=== PATIENT | female | born 1950 | race Caucasian/White ===

== ENCOUNTER 2020-06-28 14:38 | Emergency (ER) | payer MEDICARE ==
[~2020-06-28] VITALS: Ht 154.9 cm; Wt 79.5 kg
[~2020-06-28 14:38] MED LIST: HYDR-4353 PO
[2020-06-28] MEDS ORDERED: LIDOcaine 5% patch TP STA (16:40)
[2020-06-28] MEDS ORDERED: BUPIVAcaine/PF 7.5mg/ml (0.75%) 10ml vial IJ ONE (16:40)
[2020-06-28] MEDS ORDERED: NAPR-1166 PO (17:46)
[2020-06-28] MEDS ORDERED: LIDO700A32 TOP (17:46)
[2020-06-28 18:07] VITALS: BP 154/81
== END 2020-06-28 18:05 | disposition home or self-care (01) ==
LOC: ER 14:38
DX: S33.5XXA Sprain of ligaments of lumbar spine, initial encounter (principal); M54.16 Radiculopathy, lumbar region; M19.90 Unspecified osteoarthritis, unspecified site; Z98.890 Other specified postprocedural states; Z79.899 Other long term (current) drug therapy; X58.XXXA Exposure to other specified factors, initial encounter; Y93.89 Activity, other specified; Y92.89 Other specified places as the place of occurrence of the external cause; Y99.8 Other external cause status
CPT/HCPCS: 20552; 99283; 99284

== ENCOUNTER 2023-06-25 15:57 | Emergency (ER) | payer MEDICARE ==
[~2023-06-25] VITALS: Ht 152.4 cm; Wt 180.0 kg
[~2023-06-25 15:57] MED LIST changes: +LIDO700A32 TOP; +NAPR-1166 PO
[2023-06-25 16:03] VITALS: TEMP 98.5
[2023-06-25 19:05] VITALS: BP 181/68
[2023-06-25] MEDS ORDERED: predniSONE 20 mg tablet PO ONE (20:15)
[2023-06-25] MEDS ORDERED: ipratropium/albuterol 3ml nebule NEB ONE (20:15)
[2023-06-25 20:33] LABS: BILIRUBIN,URINE NEGATIVE (Neg); CLARITY,URINE CLEAR (Clear); COLOR,URINE YELLOW (Yellow); GLUCOSE, URINE NEGATIVE (Neg); KETONES,URINE NEGATIVE (Neg); LEUKOCYTE ESTERASE ,URINE NEGATIVE (Neg); NITRITES, URINE NEGATIVE (Neg); OCCULT BLOOD,URINE NEGATIVE (Neg); PROTEIN,URINE NEGATIVE (Neg); UROBILINOGEN,URINE 0.2 E.U/dL (0.2-1.0)
[2023-06-25 20:41] LABS: UA COLLECTION TYPE CLN CATCH MIDSTREAM
[2023-06-25 20:49] VITALS: PULSE 70; RESP 18; O2SAT 92
[2023-06-25 20:53] VITALS: PULSE 68; RESP 18; O2SAT 98
[2023-06-25] MEDS ORDERED: PRED20TA PO (20:57)
[2023-06-25] MEDS ORDERED: ALBU6.7H14 INH (20:57)
== END 2023-06-25 21:58 | disposition home or self-care (01) ==
LOC: ER 15:57
DX: J44.1 Chronic obstructive pulmonary disease with (acute) exacerbation (principal); M19.90 Unspecified osteoarthritis, unspecified site; F17.200 Nicotine dependence, unspecified, uncomplicated; Z79.899 Other long term (current) drug therapy
CPT/HCPCS: 71045; 81003; 93005; 94640; 99285; J7512; 94760